=== PATIENT | female | born 1995 | race Caucasian/White ===

== ENCOUNTER 2018-12-20 15:31 | Emergency (ER) | payer OTHER ==
[~2018-12-20] VITALS: Ht 165.1 cm; Wt 83.0 kg
[2018-12-20 15:35] VITALS: Ht 165.1 cm; Wt 83.0 kg
[2018-12-20] MEDS ORDERED: ACYC800T5 PO (16:09)
[2018-12-20] MEDS ORDERED: IBUP-1542 PO (16:09)
--- NOTE | 2018-12-20 16:12 | ERD ---
ER Documentation Chief Complaint Chief Complaint ITCHY RASH ON ALONG BRA LINE X 6 DAYS HPI 23-year-old female presents with ankle rash on her right flank for last 6 days. She has been under stress. She has fevers, vomiting, shortness of breath or chest pain. ROS All systems reviewed and are negative except as per history of present illness. Medications Home Meds Active Scripts Ibuprofen* (Motrin*) 600 Mg Tab, 600 MG PO Q6, #20 TAB Prov:STEPHY RUSHING MD 12/20/18 Acyclovir* (Zovirax*) 800 Mg Tablet, 800 MG PO 5 TIMES DAILY for 7 Days, TAB Prov:STEPHY RUSHING MD 12/20/18 FmHx Family History: No diabetes, No coronary disease, No other Physical Exam Vitals Vital Signs Date Temp Pulse Resp B/P (MAP) Pulse Ox O2 O2 Flow FiO2 Time Delivery Rate 12/20/18 99.4 87 16 124/74 98 15:35 (91) Physical Exam Const: No acute distress Head: Atraumatic Eyes: Normal Conjunctiva ENT: Normal External Ears, Nose and Mouth. Neck: Full range of motion. No meningismus. Resp: Clear to auscultation bilaterally Cardio: Regular rate and rhythm, no murmurs Abd: Soft, non tender, non distended. Normal bowel sounds Skin: No petechiae or purpura. Tender erythematous vesicular lesion in a dermatomal distribution on the right flank. Back: No midline or flank tenderness Ext: No cyanosis, or edema Neur: Awake and alert Psych: Normal Mood and Affect Procedures/MDM Patient presents with signs symptoms of shingles on the right flank. She has no signs of sepsis, hypoxemia, additional concerning signs or symptoms. She is 6 days into the illness. We will treat with acyclovir, ibuprofen, recommendations for primary care follow-up and return precautions. The patient was stable with no new complaints during the ER course. Clinically, there is no current evidence to suggest meningitis, sepsis, acute abdomen, pneumonia, stroke, acute coronary syndrome, pulmonary embolism, aortic dissection or any other emergent condition appearing to require further evaluation or hospitalization. Patient counseled regarding my diagnostic impression and care plan. Prior to discharge all questions answered. Pt agrees with treatment plan and understands strict return precautions. Pt is instructed to follow up with primary care provider within 24- 48 hours. Precautionary instructions provided including instructions to return to the ER if not improving or for any worsening or changing symptoms or concerns. Disclaimer: Inadvertent spelling and grammatical errors are likely due to EHR/dictation software use and do not reflect on the overall quality of patient care. Also, please note that the electronic time recorded on this note does not necessarily reflect the actual time of the patient encounter. Departure Diagnosis: Primary Impression: Shingles Herpes zoster complications: without complications Qualified Codes: B02.9 - Zoster without complications Condition: Stable Patient Instructions: Shingles (Herpes Zoster) Additional Instructions: Shingles usually last 2 weeks. Recheck for new worsening symptoms with primary care doctor. STEPHY RUSHING MD Dec 20, 2018 16:11
[2018-12-20 19:00] VITALS: BP 118/75; PULSE 82; RESP 16
== END 2018-12-20 19:00 | disposition home or self-care (01) ==
LOC: FTE 15:31
DX: B02.9 Zoster without complications (principal)
CPT/HCPCS: 99283